=== PATIENT | male | born 1990 | race African-American/Black ===

== ENCOUNTER 2017-02-22 04:18 | Emergency (ER) | payer MEDICAID ==
[~2017-02-22] VITALS: Ht 177.8 cm; Wt 58.0 kg
[2017-02-22 04:20] VITALS: BP 146/105
== END 2017-02-22 04:51 | disposition left against medical advice (07) ==
LOC: ED 04:45
DX: T65.91XA Toxic effect of unspecified substance, accidental (unintentional), initial encounter (principal); Y92.89 Other specified places as the place of occurrence of the external cause
CPT/HCPCS: 99281

== ENCOUNTER 2017-10-07 23:57 | Emergency (ER) | payer MEDICAID ==
[~2017-10-07] VITALS: Ht 177.8 cm; Wt 60.3 kg
[2017-10-08 02:13] VITALS: BP 119/71
== END 2017-10-08 02:16 | disposition home or self-care (01) ==
LOC: ED 10-08 01:40
DX: F32.0 Major depressive disorder, single episode, mild (principal); R05 Cough; Z90.49 Acquired absence of other specified parts of digestive tract
CPT/HCPCS: 71020; 99284

== ENCOUNTER 2017-10-08 07:38 | Emergency (ER) | payer MEDICAID ==
[~2017-10-08] VITALS: Ht 177.8 cm; Wt 62.0 kg
[2017-10-08 07:41] VITALS: BP 108/72
[2017-10-08] MEDS ORDERED: LORazepam 1MG TABLET PO ONE (08:00)
[2017-10-08] MEDS ORDERED: LORazepam 1MG TABLET ONE (08:23)
[2017-10-08 08:34] LABS: HEMATOCRIT 38.6 % (39.2-51.8); HEMOGLOBIN 12.9 g/dL (13.7-18.0); WHITE BLOOD COUNT 7.4 x10^3/uL (3.4-10)
[2017-10-08 08:35] LABS: ASPARTATE AMINO TRANSFERASE 17 U/L (15-37); BLOOD UREA NITROGEN 10 mg/dL (7-18)
[2017-10-08 08:46] LABS: ACETAMINOPHEN < 2 mcg/mL (10-30)
== END 2017-10-08 12:27 | disposition home or self-care (01) ==
LOC: ED 11:12
DX: F33.2 Major depressive disorder, recurrent severe without psychotic features (principal); Z59.0 Homelessness; Z90.49 Acquired absence of other specified parts of digestive tract
CPT/HCPCS: 36415; 80053; 80307; 80329; 85025; 99284; G0479; G0480

== ENCOUNTER 2018-06-30 15:15 | Emergency (ER) | payer MEDICAID ==
[~2018-06-30] VITALS: Ht 175.3 cm; Wt 62.9 kg
[2018-06-30 15:17] VITALS: BP 112/50
== END 2018-06-30 15:59 | disposition home or self-care (01) ==
LOC: ED 15:53
DX: B34.9 Viral infection, unspecified (principal); F32.9 Major depressive disorder, single episode, unspecified; Z90.89 Acquired absence of other organs
CPT/HCPCS: 71046; 99284

== ENCOUNTER 2020-06-13 16:34 | Emergency (ER) | payer MEDICAID ==
[~2020-06-13] VITALS: Ht 180.3 cm; Wt 60.0 kg
[2020-06-13 17:13] LABS: BASOPHILS # (AUTO) 0.02 x10^3/uL (0-0.1); BASOPHILS % (AUTO) 0 % (0-1); EOSINOPHILS # (AUTO) 0.02 x10^3/uL (0-0.4); EOSINOPHILS % (AUTO) 0 % (1-7); LYMPHOCYTES # (AUTO) 0.89 x10^3/uL (1-3.4); LYMPHOCYTES % (AUTO) 9 % (22-44); MD NO; MEAN CORPUSCULAR HEMOGLOBIN 34.4 pg (27.5-34.5); MEAN CORPUSCULAR HGB CONC 33.2 g/dL (33.2-36.2); MEAN CORPUSCULAR VOLUME 103.4 fL (81-97); MEAN PLATELET VOLUME 6.9 fL (7.4-10.4); MONOCYTES # (AUTO) 0.28 x10^3/uL (0.2-0.8); MONOCYTES % (AUTO) 3 % (2-9); NEUTROPHILS # (AUTO) 8.82 x10^3/uL (1.8-6.8); NEUTROPHILS % (AUTO) 88 % (42-75); PLATELET COUNT 296 x10^3/uL (130-400); RED BLOOD COUNT 4.38 x10^6/uL (4.38-5.82)
[2020-06-13 17:15] LABS: ALANINE AMINOTRANSFERASE 24 U/L (12-78); ALBUMIN 3.9 g/dL (3.4-5.0); ANION GAP 5 mmol/L (5-15); CALCIUM 9.4 mg/dL (8.5-10.1); CHLORIDE 112 mmol/L (98-107); CREATININE 1.05 mg/dL (0.7-1.3)
[2020-06-13 17:18] LABS: ALKALINE PHOSPHATASE 64 U/L (45-117); BILIRUBIN,TOTAL 0.6 mg/dL (0.2-1.0)
[2020-06-13 17:20] LABS: SALICYLATE LEVEL < 1.7 mg/dL (2.8-20.0)
--- NOTE | 2020-06-13 17:58 | NUR ---
REMINDED PATIENT THAT URINE IS NEEDED FOR TESTING. PT AGREES TO PROVIDE A SAMPLE.
[2020-06-13 18:04] VITALS: BP 135/73
--- NOTE | 2020-06-13 18:29 | NUR ---
NEW UNDERWEAR, CLEAN JEANS AND SHIRT AND HOSPITAL SOCKS BROUGHT TO PATIENT TO GET HIM READY FOR DISCHARG. PATIENT UNSURE OF HIS NAME AND ADDRESS. NOTIFIED KENZIE MARTIN AND DR. ZALDIVAR AND REQUESTED THAT THEY RE-EVALUATE PATIENT AND NOTIFIED THEM THAT HE DOES NOT SEEM READY FOR DISCHARGE. DR. ZALDIVAR TO SEE PATIENT.
--- NOTE | 2020-06-13 19:15 | NUR ---
RECEIVED BS REPORT FROM ANNELISE DEGROOT TO ASSUME CARE OF PT. AT APROXIMATELY 1850; PT. IS A&O X 3 AT THIS TIME. PT. CONTIUALLY COMING OUT OF ROOM AND REQUESTING TO LEAVE, STATING "I DON'T EVEN KNOW WHY I AM STILL HERE, THEY TOLD ME I WAS GOING TO BE ABLE TO LEAVE?" KENZIE MARTIN AND DR. ZALDIVAR BOTH MADE AWARE THAT PT. ATTEMPTING TO LEAVE. PT. DENIES SI/HI AND HAS BEEN MEDICALLY CLEARED FOR DISCHARGE PER BOTH PROVIDERS IT IS OK FOR PT. TO LEAVE ED. PT. FULLY DRESSED AND AMBULATORY OUT OF ED WITH STEADY GAIT. NO DISTRESS NOTED.
[2020-06-13 19:21] LABS: AMPHETAMINE SCREEN, URINE Positive (Negative); BARBITURATE SCREEN, URINE Negative (Negative); BENZODIAZEPINE SCREEN, URINE Negative (Negative); CANNABINOID SCREEN, URINE Positive (Negative); COCAINE SCREEN, URINE Negative (Negative); METHADONE SCREEN, URINE Negative (Negative); OPIATE SCREEN, URINE Negative (Negative)
== END 2020-06-13 19:16 | disposition home or self-care (01) ==
LOC: ED 18:39
DX: F41.1 Generalized anxiety disorder (principal); F15.10 Other stimulant abuse, uncomplicated; Z72.9 Problem related to lifestyle, unspecified; Z90.89 Acquired absence of other organs; F17.200 Nicotine dependence, unspecified, uncomplicated
CPT/HCPCS: 36415; 80053; 80307; 85025; 99283

== ENCOUNTER 2020-08-08 10:31 | Emergency (ER) | payer MEDICAID ==
[~2020-08-08] VITALS: Ht 177.8 cm; Wt 59.6 kg
[2020-08-08 10:44] VITALS: BP 103/56
[2020-08-08 12:15] LABS: MICROSCOPIC INDICATED
== END 2020-08-08 12:25 | disposition home or self-care (01) ==
LOC: ED 10:54
DX: N34.2 Other urethritis (principal); R30.0 Dysuria; Z90.89 Acquired absence of other organs
CPT/HCPCS: 81001; 87086; 87491; 87591; 99283

== ENCOUNTER 2020-08-13 19:06 | Emergency (ER) | payer MEDICAID ==
[~2020-08-13] VITALS: Ht 177.8 cm; Wt 60.0 kg
--- NOTE | 2020-08-13 19:51 | NUR ---
BREAK RN, PT BACK FROM US. NO NEEDS AT THIS TIME
[2020-08-13] MEDS ORDERED: CEFTRIAXONE 1,000 MG IM ONE (20:00)
--- NOTE | 2020-08-13 20:06 | NUR ---
HERBERT RN, URINE COLLECTED AND SENT TO LAB
[2020-08-13] MEDS ORDERED: CEFTRIAXONE 250 MG ONE (20:08)
[2020-08-13] MEDS ORDERED: AZITHROMYCIN 250 MG TABLET ONE (20:09)
[2020-08-13 20:17] LABS: MICROSCOPIC INDICATED
[2020-08-13 20:34] VITALS: BP 97/53
[2020-08-13] MEDS ORDERED: AZITHROMYCIN 500 MG TABLET PO ONE (21:00)
--- NOTE | 2020-08-13 21:02 | NUR ---
D/C INSTRUCTIONS, MEDS & F/U APPT RV'WD WITH PT, HE VERBALIZES UNDERSTANDING. RX GIVEN X1. CARE CHEST INFO PROVIDED TO PT. PT AMBULATED OUT OF ED WITHOUT DIFFICULTY.
== END 2020-08-13 21:00 | disposition home or self-care (01) ==
LOC: ED 20:24
DX: N45.1 Epididymitis (principal); Z90.89 Acquired absence of other organs; F17.200 Nicotine dependence, unspecified, uncomplicated
CPT/HCPCS: 76870; 81001; 87086; 87491; 87591; 96372; 99284; J0696

== ENCOUNTER 2020-08-17 10:39 | Emergency (ER) | payer MEDICAID ==
[~2020-08-17] VITALS: Ht 177.8 cm; Wt 59.6 kg
[2020-08-17 10:46] VITALS: BP 109/67
== END 2020-08-17 11:45 | disposition left against medical advice (07) ==
LOC: ED 11:30
DX: N50.812 Left testicular pain (principal)
CPT/HCPCS: 99281

== ENCOUNTER 2020-08-18 10:38 | Emergency (ER) | payer MEDICAID ==
[~2020-08-18] VITALS: Ht 177.8 cm; Wt 59.6 kg
--- NOTE | 2020-08-18 12:22 | NUR ---
PATIENT WALKED BACK FROM TRIAGE WITH CHIEF C/O SCROTUM PAIN X4 DAYS. PATIENT STATES HIS PAIN LEVEL IS A 8/10. DENIES PAIN WITH URINATION, NO FEVER, NO DISCHARGE FROM PENIS PER PATIENT. NO SIGNS OF ACUTE DISTRESS, CONNECTED TO VITALS MACHINE, EDUCATED ON NEED FOR URINE SAMPLE, PATIENT STATES "I NEED TO DRINK SOME WATER FIRST." CALL LIGHT WITHIN REACH.
--- NOTE | 2020-08-18 12:23 | NUR ---
TESTER VIBRATOR EQUIPMENT: PT TO ROOM FROM LOBBY
[2020-08-18 12:26] VITALS: BP 110/68
[2020-08-18 12:44] LABS: BASOPHILS % (AUTO) 1 % (0-1); EOSINOPHILS % (AUTO) 2 % (1-7); LYMPHOCYTES % (AUTO) 31 % (22-44); MEAN CORPUSCULAR HEMOGLOBIN 33.9 pg (27.5-34.5); MEAN CORPUSCULAR HGB CONC 32.9 g/dL (33.2-36.2); MEAN PLATELET VOLUME 6.2 fL (7.4-10.4); MONOCYTES % (AUTO) 7 % (2-9); NEUTROPHILS % (AUTO) 59 % (42-75); PLATELET COUNT 372 x10^3/uL (130-400); RED BLOOD COUNT 3.81 x10^6/uL (4.38-5.82)
[2020-08-18] MEDS ORDERED: HYDROcodone/APAP 5/325 TABLET PO ONE (13:00)
[2020-08-18 13:15] LABS: MD MORPH REVIEW ONLY
[2020-08-18 13:16] LABS: <PLATELET ESTIMATE> ADEQUATE; <PLT MORPHOLOGY> NORMAL PLT MORPH; ANISOCYTOSIS 1+
--- NOTE | 2020-08-18 13:42 | NUR ---
Patient given discharge instructions and prescription and they have confirmed that they understand the instructions. All patient belongings gathered and taken with patient. Patient ambulatory with steady gait from ED.
== END 2020-08-18 13:43 | disposition home or self-care (01) ==
LOC: ED 12:48
DX: N45.1 Epididymitis (principal); Z72.9 Problem related to lifestyle, unspecified; Z90.49 Acquired absence of other specified parts of digestive tract
CPT/HCPCS: 36415; 76870; 85025; 99284

== ENCOUNTER 2020-08-29 13:50 | Emergency (ER) | payer MEDICAID ==
[~2020-08-29] VITALS: Ht 177.8 cm; Wt 60.0 kg
[2020-08-29] MEDS ORDERED: ACETAMINOPHEN 500 MG TABLET ONE (14:25)
[2020-08-29] MEDS ORDERED: ACETAMINOPHEN 500 MG TABLET PO ONE (14:30)
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
[2020-08-29] MEDS ORDERED: PROPOFOL 10 MG/ML, 20ML IVPush ONE (16:00)
[2020-08-29] MEDS ORDERED: PROPOFOL 10 MG/ML, 20ML ONE (16:20)
[2020-08-29] MEDS ORDERED: SODIUM CHLORIDE FLUSH 10ML SYR IVF ONE (16:30)
--- NOTE | 2020-08-29 16:39 | NUR ---
PT TO HAVE PROCEDURAL SEDATION FOR CLOSED REDUCTION, RM PREPARED. VSS
--- NOTE | 2020-08-29 17:10 | NUR ---
PROCEDURAL SEDATION PERFORMED AT BEDSIDE, CLOSED REDUCTION PROCEDURE COMPLETED. PT TOLERATED WELL, SEE PROCEDURAL SEDATION PAPERWORK FOR VS.
[2020-08-29 17:52] VITALS: BP 112/71
--- NOTE | 2020-08-29 17:53 | NUR ---
PT ROUSABLE TO VERBAL STIMULI, PT FALLS BACK TO SLEEP QUICKLY. UNABLE TO WALK PT AT THIS TIME.
--- NOTE | 2020-08-29 18:41 | NUR ---
PT ABLE TO DEMONSTRATE CRUTCH WALKING STEADY. PT GIVEN TAXI VOUCHER.
== END 2020-08-29 18:45 | disposition home or self-care (01) ==
LOC: ED 15:50
DX: S93.124A Dislocation of metatarsophalangeal joint of right lesser toe(s), initial encounter (principal); M79.89 Other specified soft tissue disorders; X58.XXXA Exposure to other specified factors, initial encounter; Y93.89 Activity, other specified; Y92.488 Other paved roadways as the place of occurrence of the external cause; Y99.8 Other external cause status
CPT/HCPCS: 28630; 99285

== ENCOUNTER 2021-04-15 15:43 | Emergency (ER) | payer MEDICAID ==
[~2021-04-15] VITALS: Ht 177.8 cm; Wt 59.9 kg
[2021-04-15 15:45] VITALS: BP 108/67
[2021-04-15] MEDS ORDERED: PROPARACAINE OPHTH 0.5%, 15ML EACHEYE ONE (16:00)
[2021-04-15] MEDS ORDERED: FLUORESCEIN OPHTHALMIC 1 MG STRIP EACHEYE ONE (16:00)
[2021-04-15] MEDS ORDERED: PROPARACAINE OPHTH 0.5%, 15ML ONE (16:34)
[2021-04-15] MEDS ORDERED: FLUORESCEIN OPHTHALMIC 1 MG STRIP ONE (16:34)
== END 2021-04-15 18:13 | disposition home or self-care (01) ==
LOC: ED 16:30
DX: H57.13 Ocular pain, bilateral (principal); Z72.9 Problem related to lifestyle, unspecified; F15.10 Other stimulant abuse, uncomplicated; F17.210 Nicotine dependence, cigarettes, uncomplicated
CPT/HCPCS: 99283